=== PATIENT | female | born 1985 | race Caucasian/White ===

== ENCOUNTER 2017-05-09 17:32 | Emergency (ER) | payer OTHER ==
[~2017-05-09] VITALS: Ht 170.2 cm; Wt 90.7 kg
[~2017-05-09 17:32] MED LIST: ALDOMET250 MG PO; CEPHALEXIN 500500 M3 PO; CIPRO250 M2 PO; IBUPROFEN 800800 M1 PO; IBUPROFEN 800800 MG PO; IMITREX 25 MG T25 MG PO; MEDROLDOSEPACK PO; MICROGESTIN1 EAC1 PO; MUCINEX TA600 MG/TA2 PO; PRINIVIL10 MG PO; PROAIR HFA8.5 GM INH; PROMETHAZINE D480 ML PO; TESSALON PERLE100 MG PO; TOPAMAX 25 MG T25 M1 PO; ZPAK PO
[2017-05-09 19:41] VITALS: BP 124/66
== END 2017-05-09 19:42 | disposition home or self-care (01) ==
LOC: M.ERS 17:32
DX: S60.221A Contusion of right hand, initial encounter (principal); I10 Essential (primary) hypertension; G43.909 Migraine, unspecified, not intractable, without status migrainosus; Z91.048 Other nonmedicinal substance allergy status; W18.39XA Other fall on same level, initial encounter; Y93.89 Activity, other specified; Y92.89 Other specified places as the place of occurrence of the external cause; Y99.0 Civilian activity done for income or pay

== ENCOUNTER 2017-09-04 18:29 | Emergency (ER) | payer OTHER ==
[~2017-09-04] VITALS: Ht 170.2 cm; Wt 90.7 kg
[2017-09-04 18:58] LABS: URINE BILIRUBIN NEGATIVE (Negative); URINE BLOOD 3+ (Negative); URINE CLARITY CLEAR; URINE COLOR YELLOW; URINE GLUCOSE-RANDOM NEGATIVE (Negative); URINE KETONES NEGATIVE (Negative); URINE LEUKOCYTES-REFLEX NEGATIVE (Negative); URINE NITRITE-REFLEX NEGATIVE (Negative); URINE PROTEIN NEGATIVE (Negative); URINE SPECIFIC GRAVITY 1.025 (1.005-1.030); URINE UROBILINOGEN 0.2 E.U./dl (0.2-1.0)
[2017-09-04 19:03] LABS: COARSE GRANULAR CASTS 0-3 Few /LPF (None Seen); FINE GRANULAR CASTS 0-3 Few /LPF (None Seen); HYALINE CASTS 0-3 Few /LPF (None Seen); MUCUS >6 Heavy strn/LPF (None Seen); SQUAMOUS >10 Many /LPF (0-3)
[2017-09-04 19:04] LABS: AMORPHOUS URATES Moderate /LPF (None Seen); URINE RBC >20 Many /HPF (0-2); URINE WBC-REFLEX 6-15 Few /HPF (0-5)
[2017-09-04 19:07] LABS: ABSOLUTE BASOPHILS 0.1 thou/uL (0.0-0.2); ABSOLUTE EOSINOPHILS 0.1 thou/uL (0.0-0.7); ABSOLUTE LYMPHOCYTES 2.8 thou/uL (0.8-5.3); ABSOLUTE MONOCYTES 0.8 thou/uL (0.0-1.2); ABSOLUTE NEUTROPHILS 6.1 thou/uL (1.6-8.1); HEMATOCRIT 36.9 % (37.0-47.0); HEMOGLOBIN 12.7 gm/dL (12.0-15.0); LYMPHOCYTES 28.6 %; MCH 30.7 pg (26.0-34.0); MCHC 34.5 g/dL (28.0-37.0); MONOCYTES 7.8 %; MPV 10.7 fl. (7.2-11.1); NUCLEATED RBCS 0 /100WBC; PLATELET COUNT* 187 thou/uL (150-400); POLYS 61.6 %; RBC 4.14 mil/uL (4.20-5.00); RDW-CV 13.2 % (10.5-14.5); WBC 9.9 thou/uL (4.0-11.0)
[2017-09-04 19:14] LABS: CALCIUM 9.1 mg/dL (8.5-10.1); POTASSIUM 3.7 mmol/L (3.5-5.1)
[2017-09-04 19:19] LABS: ALBUMIN 3.5 g/dL (3.4-5.0); TOTAL BILIRUBIN 0.2 mg/dL (<0.1-1.0); TOTAL PROTEIN 7.1 g/dL (6.4-8.2)
[2017-09-04] MEDS ORDERED: ULTRAM 50MG TAB50 MG PO (19:23)
[2017-09-04] MEDS ORDERED: BACTRIM DS TAB1 EAC1 PO (19:23)
[2017-09-04 19:40] VITALS: BP 127/83
== END 2017-09-04 19:40 | disposition home or self-care (01) ==
LOC: M.ERS 18:29
PROVIDERS: Nurse Practitioner
DX: R31.9 Hematuria, unspecified (principal); G43.909 Migraine, unspecified, not intractable, without status migrainosus; I10 Essential (primary) hypertension; Z86.2 Personal history of diseases of the blood and blood-forming organs and certain disorders involving the immune mechanism; Z91.018 Allergy to other foods

== ENCOUNTER 2017-09-29 00:18 | Emergency (ER) | payer OTHER ==
[~2017-09-29] VITALS: Ht 167.6 cm; Wt 86.2 kg
[~2017-09-29 00:18] MED LIST changes: +BACTRIM DS TAB1 EAC1 PO; +ULTRAM 50MG TAB50 MG PO
[2017-09-29] MEDS ORDERED: PREDNISONE50 MG PO (00:45)
[2017-09-29] MEDS ORDERED: TRIAMCINOLONE A80 G2 TOP (00:45)
[2017-09-29 01:17] VITALS: BP 128/86
== END 2017-09-29 01:18 | disposition home or self-care (01) ==
LOC: M.ERS 00:18
DX: T78.40XA Allergy, unspecified, initial encounter (principal); I10 Essential (primary) hypertension; G43.909 Migraine, unspecified, not intractable, without status migrainosus; Z91.018 Allergy to other foods; Z86.2 Personal history of diseases of the blood and blood-forming organs and certain disorders involving the immune mechanism; X58.XXXA Exposure to other specified factors, initial encounter

== ENCOUNTER 2017-10-13 14:58 | Emergency (ER) | payer OTHER ==
[~2017-10-13] VITALS: Ht 167.6 cm; Wt 90.7 kg
[~2017-10-13 14:58] MED LIST changes: +PREDNISONE50 MG PO; +TRIAMCINOLONE A80 G2 TOP
[2017-10-13] MEDS ORDERED: NIFEDIPINE ER30 M1 PO (15:06)
[2017-10-13 15:26] LABS: ABSOLUTE BASOPHILS 0.1 thou/uL (0.0-0.2); ABSOLUTE EOSINOPHILS 0.1 thou/uL (0.0-0.7); ABSOLUTE LYMPHOCYTES 2.9 thou/uL (0.8-5.3); ABSOLUTE MONOCYTES 0.6 thou/uL (0.0-1.2); BASOPHILS 0.7 %; EOSINOPHILS 0.7 %; HEMATOCRIT 40.7 % (37.0-47.0); HEMOGLOBIN 13.9 gm/dL (12.0-15.0); LYMPHOCYTES 19.8 %; MCH 30.6 pg (26.0-34.0); MCHC 34.2 g/dL (28.0-37.0); MCV 89.4 fL (80.0-100.0); MONOCYTES 4.1 %; MPV 10.5 fl. (7.2-11.1); NUCLEATED RBCS 0 /100WBC; PLATELET COUNT* 176 thou/uL (150-400); POLYS 74.7 %; RBC 4.56 mil/uL (4.20-5.00); RDW-CV 13.3 % (10.5-14.5); WBC 14.7 thou/uL (4.0-11.0)
[2017-10-13 15:32] LABS: ANION GAP 11 mmol/L (7-16); BUN 10 mg/dL (7-18); CALCIUM 8.8 mg/dL (8.5-10.1); CHLORIDE 103 mmol/L (98-107); CO2 24 mmol/L (21-32); GLUCOSE 152 mg/dL (70-99); POTASSIUM 3.3 mmol/L (3.5-5.1); SODIUM 138 mmol/L (136-145)
[2017-10-13 15:42] LABS: ALBUMIN 3.5 g/dL (3.4-5.0); ALKALINE PHOSPHATASE 70 U/L (46-116); LIPASE 111 U/L (73-393); MAGNESIUM 1.8 mg/dL (1.8-2.4); NT-PRO BRAIN NAT PEPTIDE 32 pg/mL (<300); SGOT 10 U/L (15-37); SGPT 24 U/L (30-65); TOTAL BILIRUBIN 0.4 mg/dL (<0.1-1.0); TOTAL PROTEIN 7.2 g/dL (6.4-8.2); TROPONIN-I LEVEL <0.06 ng/mL (<0.06)
[2017-10-13] MEDS ORDERED: ZOFRAN ODT4 MG PO (18:06)
[2017-10-13 18:14] VITALS: BP 115/62
--- NOTE | 2017-10-14 10:11 | EKG ---
[place] [address] ELECTROCARDIOGRAM REPORT Name: RACIEL JACKSON Room: [facility]#: [id number] Admission: 10/13/17 Attend Phys: Discharge: 10/13/17 Date of : 83 Report #: [id number] THIS REPORT FOR: //name// [facility] ED Test Date: 2017-10-13 Test Time: 15:02:48 Pat Name: RACIEL BRAYRANDELL Department: Room: Gender: F Contract Coordinator: : 1985 Requested By: Jimmy Nieves Order Number: [id number] MD: Pavel Velazquez Measurements Intervals [place] Rate: 88 P: -14 MT: 126 QRS: 32 QRSD: 100 T: -3 QT: 371 QTc: 449 Interpretive Statements Sinus rhythm Minimal ST depression, anterolateral leads Baseline wander in lead(s) III,aVL No previous ECG available for comparison Electronically Signed On 10-14-2017 10:11:10 CDT by Pavel Velazquez [email or web address] <ELECTRONICALLY SIGNED> By: Pavel Velazquez MD, [facility] 10/14/17 1011 1502 1502 Pavel Velazquez MD, [facility] /EPI
--- NOTE | 2017-10-14 10:15 | EKG ---
[place] [address] ELECTROCARDIOGRAM REPORT Name: RACIEL JACKSON Room: [facility]#: [id number] Admission: 10/13/17 Attend Phys: Discharge: 10/13/17 Date of : 83 Report #: [id number] THIS REPORT FOR: //name// [facility] ED Test Date: 2017-10-13 Test Time: 16:54:39 Pat Name: RACIELJESÚS JACKSON Department: Room: Gender: F Nursing Agency Manager: : 1985 Requested By: Jimmy Nieves Order Number: [id number] MD: Pavel Velazquez Measurements Intervals [place] Rate: 80 P: -11 CT: 128 QRS: 17 QRSD: 101 T: -7 QT: 418 QTc: 483 Interpretive Statements Sinus rhythm Borderline T abnormalities, inferior leads Borderline prolonged QT interval Electronically Signed On 10-14-2017 10:15:30 CDT by Pavel Velazquez [email or web address] <ELECTRONICALLY SIGNED> By: Pavel Velazquez MD, [facility] 10/14/17 1015 1654 1654 Pavel Velazquez MD, FACC /EPI
== END 2017-10-13 18:15 | disposition home or self-care (01) ==
LOC: M.ERS 14:58
PROVIDERS: Emergency Medicine Emergency Medical Services
DX: R07.89 Other chest pain (principal); G43.909 Migraine, unspecified, not intractable, without status migrainosus; I10 Essential (primary) hypertension; Z86.2 Personal history of diseases of the blood and blood-forming organs and certain disorders involving the immune mechanism; Z91.018 Allergy to other foods

== ENCOUNTER 2017-10-16 14:08 | Emergency (ER) | payer OTHER ==
[~2017-10-16] VITALS: Ht 167.6 cm; Wt 90.7 kg
[~2017-10-16 14:08] MED LIST changes: +NIFEDIPINE ER30 M1 PO; +ZOFRAN ODT4 MG PO
[2017-10-16 14:33] LABS: ABSOLUTE BASOPHILS 0.1 thou/uL (0.0-0.2); ABSOLUTE EOSINOPHILS 0.1 thou/uL (0.0-0.7); ABSOLUTE LYMPHOCYTES 2.7 thou/uL (0.8-5.3); ABSOLUTE MONOCYTES 0.7 thou/uL (0.0-1.2); ABSOLUTE NEUTROPHILS 7.9 thou/uL (1.6-8.1); BASOPHILS 0.8 %; EOSINOPHILS 1.2 %; HEMATOCRIT 38.2 % (37.0-47.0); HEMOGLOBIN 12.9 gm/dL (12.0-15.0); LYMPHOCYTES 23.2 %; MCH 30.3 pg (26.0-34.0); MCHC 33.8 g/dL (28.0-37.0); MCV 89.6 fL (80.0-100.0); MONOCYTES 6.3 %; MPV 10.6 fl. (7.2-11.1); NUCLEATED RBCS 0 /100WBC; PLATELET COUNT* 165 thou/uL (150-400); POLYS 68.5 %; RBC 4.26 mil/uL (4.20-5.00); RDW-CV 13.2 % (10.5-14.5); WBC 11.5 thou/uL (4.0-11.0)
[2017-10-16 14:43] LABS: ANION GAP 5 mmol/L (7-16); BUN 11 mg/dL (7-18); CALCIUM 8.6 mg/dL (8.5-10.1); CHLORIDE 103 mmol/L (98-107); CO2 29 mmol/L (21-32); CREATININE 0.8 mg/dL (0.6-1.3); GLUCOSE 96 mg/dL (70-99); POTASSIUM 3.8 mmol/L (3.5-5.1); SODIUM 137 mmol/L (136-145)
[2017-10-16 14:50] LABS: ALBUMIN 3.2 g/dL (3.4-5.0); ALKALINE PHOSPHATASE 76 U/L (46-116); LIPASE 126 U/L (73-393); MAGNESIUM 1.8 mg/dL (1.8-2.4); SGOT 13 U/L (15-37); SGPT 23 U/L (30-65); TOTAL BILIRUBIN 0.2 mg/dL (<0.1-1.0); TOTAL PROTEIN 6.7 g/dL (6.4-8.2); TROPONIN-I LEVEL <0.06 ng/mL (<0.06)
--- NOTE | 2017-10-16 15:21 | EKG ---
[place] [address] ELECTROCARDIOGRAM REPORT Name: RACIEL JACKSON Room: [facility]#: [id number] Admission: 10/16/17 Attend Phys: Discharge: Date of : 83 Report #: [id number] THIS REPORT FOR: //name// [facility] ED Test Date: 2017-10-16 Test Time: 14:18:11 Pat Name: RACIEL JACKSON Department: Room: Gender: F Reclamation Engineer: Vanessa GRACE : 1985 Requested By: Jimmy Nieves Order Number: [id number] MD: Pavel Velazquez Measurements Intervals [place] Rate: 79 P: -2 MA: 132 QRS: 15 QRSD: 102 T: 1 QT: 403 QTc: 463 Interpretive Statements Sinus rhythm Compared to ECG 10/13/2017 16:54:39 no change Electronically Signed On 10-16-2017 15:21:48 CDT by Pavel Velazquez [email or web address] <ELECTRONICALLY SIGNED> By: Pavel Velazquez MD, [facility] 10/16/17 1521 1418 1418 Pavel Velazquez MD, FACC /EPI
[2017-10-16 17:50] VITALS: BP 134/78
--- NOTE | 2017-10-20 08:15 | CON ---
[address] [address] CONSULTATION Name: RACIEL JACKSON Room: [facility]#: [id number] Admission: 10/16/17 Attend Phys: Discharge: 10/16/17 Date of : 83 Report #: [id number] THIS REPORT FOR: //name// CC: Jimmy Morales ONLINE SERVICES MANAGER INDICATION: Palpitations, chest pressure and heaviness. HISTORY OF PRESENT ILLNESS: The patient is a 31-year-old white female who started noting symptoms of tachycardia on Friday. She had recently switched from methyldopa to nifedipine for her blood pressure. She took a single dose of nifedipine and then had symptoms of chest pressure and tachycardia. She has been off this medicine since. She continues to have intermittent episodes where she feels her heart racing and feels chest pressure. At the time of my interview in the Emergency Room, her heart rate was in the 80s and she was comfortable. The patient and her note that she has had dizziness intermittently for the last 6 months. She has not had any syncope. The patient and her report that they are considering in the near future and this has prompted some adjustments to her antihypertensive regimen. PAST MEDICAL HISTORY: 1. Hypertension. 2. Migraines. PAST SURGICAL HISTORY: None. FAMILY HISTORY: The patient's father may have sarcoidosis. SOCIAL HISTORY: The patient does not smoke. She does not drink alcohol. ALLERGIES: None. CURRENT MEDICATIONS: Imitrex p.r.n. REVIEW OF SYSTEMS: A 14-point review of systems is positive for palpitations, chest tightness, dyspnea on exertion and lightheadedness. Otherwise, unremarkable. PHYSICAL EXAMINATION: VITAL SIGNS: Stable. Blood pressure was 132/83, pulse 82 and regular. GENERAL: This is a pleasant young lady who is in no distress. Mood and affect appropriate. HEENT: Extraocular muscles intact. Mucous membranes are moist. NECK: Shows no jugular venous distention. [place] [address] CONSULTATION Name: RACIEL JACKSON Room: [facility]#: [id number] Admission: 10/16/17 Attend Phys: Discharge: 10/16/17 Date of : 83 Report #: [id number] CHEST: Reveals clear lung kelsey without wheezes or rales. CARDIOVASCULAR: Reveals a regular rhythm with normal S1 and S2. I do not appreciate gallop or murmur. ABDOMEN: Reveals normal bowel sounds. The abdomen is soft, nontender. EXTREMITIES: Shows no edema. Peripheral pulses 2+ and easily palpable. SKIN: Warm and dry. LABORATORY DATA: A 12-lead EKG shows sinus rhythm with no significant ST or T-wave abnormalities. Troponin is less than 0.06. Chest x-ray shows no acute cardiopulmonary abnormality. IMPRESSION AND RECOMMENDATIONS: 1. Chest pressure and discomfort. Etiology not clear. I would like the patient undergo an exercise echocardiogram. Further cardiac evaluation will be pending the results of the study. 2. Palpitations including some tachycardia, possibly related to her nifedipine, although she only took 1 dose. I would recommend treating her blood pressure with labetalol as this may have a calming effect on her heart rate. 3. Hypertension. The patient relatively stable at this time on no medications at all. 4. The patient is concerned about whether or not she is healthy from a cardiac standpoint for . At this point in time, I see no contraindications to . If her stress echocardiogram is unremarkable, then there are certainly no contraindications. <ELECTRONICALLY SIGNED> By: Cong Bolanos MD, FACC 10/20/17 0815 1549 2020Micanastacia Bolanos MD, FACC /nt
--- NOTE | 2017-10-21 10:55 | EXE ---
[place] [address] STRESS ECHOCARDIOGRAM Name: ASASCOOBYRoopaRACIEL Room: [facility]#: [id number] Admission: 10/16/17 Attend Phys: Discharge: 10/16/17 Date of : 83 Date of Service: 10/21/17 1055 Report #: [id number] THIS REPORT FOR: //name// APPROVED REPORT Study performed: 10/16/2017 16:53:42 Exam: Stress Echocardiogram Indication: Chest pain , Dyspnea Patient Location: ER Stress Nurse: Elva Jacob RN Supervising Physician: Cong Bolanos MD Ht: 5 ft 6 in HR: 75 bpm BP: 142/86 mmHg Medical History Medications: Nifedipine Cardiac Risk Factors: FHX of CAD, HTN Procedure The patient underwent an Exercise Stress Test using the Rome Protocol. Blood pressure, heart rate, and EKG were monitored. An Echocardiogram was performed by sales technician in four stages in quad fashion. At peak stress, four selected images were obtained and placed side by side with resting images for comparison. Stress Test Details Stress Test: Exercise stress testing was performed using a Rome protocol. HR Resting HR: 75 bpm Max Heart Rate (APMHR): 188 bpm Max HR Achieved: 185 bpm Target HR (85% APMHR): 159 bpm % of APMHR: 98 Recovery HR: 96 bpm HR response to stress: Normal HR response to stress BP Resting BP: 142/86 mmHg Max BP: 128/74 mmHg Recovery BP: 149/83 mmHg ECG Resting ECG: Sinus Rhythm Stress ECG: Sinus Rhythm, nonspecific ST-T abnormalities ST Change: [place] [address] STRESS ECHOCARDIOGRAM Name: RACIEL JACKSON Room: [facility]#: [id number] Admission: 10/16/17 Attend Phys: Discharge: 10/16/17 Date of : 83 Date of Service: 10/21/17 1055 Report #: [id number] Maximum ST Deviation: 0.5 mm Arrhythmia: None Recovery ECG: Sinus Rhythm, nonspecific ST-T abnormalities Recovery ST Change: Upsloping ST depression Recovery ST Deviation: 0.5 mm Recovery Arrhythmia: None Clinical Reason for Termination: Dyspnea, Maximal effort Stress Symptoms: Chest heaviness Exercise duration: 10 min sec Highest Stage Achieved: Stage 4: 4.2 mph at 16% grade. Exercise capacity: 11.78 METs Overall Exercise Capacity for Age: Good Pre-Stress Echo The resting Echocardiogram showed normal left ventricular contractility with an estimated Ejection Fraction of about 60-65%. Post-Stress Echo The stress Echocardiogram showed normal left ventricular contractility with an estimated Ejection Fraction of about >70%. Conclusion Clinical Response: Equivocal Exercise Capacity: Average Stress ECG Response: Indeterminant Stress Echo Images: Non-ischemic low risk stress echo for future cardiac events Other Information Study Quality: Fair <Conclusion> low risk stress echo for future cardiac events <ELECTRONICALLY SIGNED> By: Cong Bolanos MD, FACC 10/21/17 1055 1055 1055 Cong Bolanos MD, FACC /INF
== END 2017-10-16 17:51 | disposition home or self-care (01) ==
LOC: M.ERS 14:08
PROVIDERS: Emergency Medicine Emergency Medical Services
DX: R07.9 Chest pain, unspecified (principal); I10 Essential (primary) hypertension; G43.909 Migraine, unspecified, not intractable, without status migrainosus; Z86.2 Personal history of diseases of the blood and blood-forming organs and certain disorders involving the immune mechanism; Z91.018 Allergy to other foods

== ENCOUNTER 2017-12-21 01:47 | Emergency (ER) | payer OTHER ==
[~2017-12-21] VITALS: Ht 170.2 cm; Wt 90.7 kg
[2017-12-21] MEDS ORDERED: TRANDATE 200 M200 M1 PO (01:58)
[2017-12-21] MEDS ORDERED: ZOFRAN ODT4 MG PO (02:40)
[2017-12-21] MEDS ORDERED: BUTALB-APAP-CA1 EACH PO (02:40)
[2017-12-21 03:45] VITALS: BP 124/80
== END 2017-12-21 03:45 | disposition home or self-care (01) ==
LOC: M.ERS 01:47
DX: G43.909 Migraine, unspecified, not intractable, without status migrainosus (principal); I10 Essential (primary) hypertension; Z88.8 Allergy status to other drugs, medicaments and biological substances

== ENCOUNTER 2018-03-18 13:18 | Emergency (ER) | payer OTHER ==
[~2018-03-18] VITALS: Ht 170.2 cm; Wt 103.4 kg
[~2018-03-18 13:18] MED LIST changes: +BUTALB-APAP-CA1 EACH PO; +TRANDATE 200 M200 M1 PO
[2018-03-18] MEDS ORDERED: PRENATAL PO (13:37)
[2018-03-18 14:00] LABS: HEMATOCRIT 36.3 % (37.0-47.0); HEMOGLOBIN 12.3 gm/dL (12.0-15.0); MCHC 33.8 g/dL (28.0-37.0); MCV 88.7 fL (80.0-100.0); MPV 10.4 fl. (7.2-11.1); RBC 4.09 mil/uL (4.20-5.00); RDW-CV 13.4 % (10.5-14.5); WBC 10.5 thou/uL (4.0-11.0)
[2018-03-18 14:13] LABS: CALCIUM 8.8 mg/dL (8.5-10.1); CREATININE 0.7 mg/dL (0.6-1.3); POTASSIUM 3.6 mmol/L (3.5-5.1)
[2018-03-18 14:17] LABS: ALBUMIN 3.4 g/dL (3.4-5.0); TOTAL BILIRUBIN 0.2 mg/dL (<0.1-1.0); TOTAL PROTEIN 6.9 g/dL (6.4-8.2)
[2018-03-18 15:39] VITALS: BP 140/79
== END 2018-03-18 15:41 | disposition home or self-care (01) ==
LOC: M.ERS 13:18
PROVIDERS: Nurse Practitioner
DX: O9A.211 Injury, poisoning and certain other consequences of external causes complicating pregnancy, first trimester (principal); S93.492A Sprain of other ligament of left ankle, initial encounter; G43.909 Migraine, unspecified, not intractable, without status migrainosus; I10 Essential (primary) hypertension; Z86.2 Personal history of diseases of the blood and blood-forming organs and certain disorders involving the immune mechanism; Z91.018 Allergy to other foods; Z88.8 Allergy status to other drugs, medicaments and biological substances; Z91.048 Other nonmedicinal substance allergy status; Z3A.11 11 weeks gestation of pregnancy; W10.9XXA Fall (on) (from) unspecified stairs and steps, initial encounter; Y92.89 Other specified places as the place of occurrence of the external cause; Y93.89 Activity, other specified; Y99.8 Other external cause status

== ENCOUNTER 2018-03-27 13:06 | Emergency (ER) | payer OTHER ==
[~2018-03-27] VITALS: Ht 167.6 cm; Wt 108.4 kg
[~2018-03-27 13:06] MED LIST changes: +PRENATAL PO
[2018-03-27 13:31] VITALS: BP 143/78
== END 2018-03-27 13:31 | disposition home or self-care (01) ==
LOC: M.ERS 13:06
DX: O26.891 Other specified pregnancy related conditions, first trimester (principal); R20.2 Paresthesia of skin; O99.111 Other diseases of the blood and blood-forming organs and certain disorders involving the immune mechanism complicating pregnancy, first trimester; I10 Essential (primary) hypertension; G43.909 Migraine, unspecified, not intractable, without status migrainosus; Z3A.13 13 weeks gestation of pregnancy; Z91.018 Allergy to other foods; Z88.8 Allergy status to other drugs, medicaments and biological substances

== ENCOUNTER 2018-04-27 21:08 | Emergency (ER) | payer OTHER ==
[~2018-04-27] VITALS: Ht 167.6 cm; Wt 106.6 kg
[2018-04-27] MEDS ORDERED: ASPIR 8181 MG (21:20)
[2018-04-27] MEDS ORDERED: PROAIR HFA8.5 GM INH (21:31)
[2018-04-27] MEDS ORDERED: KEFLEX500 M1 PO (21:31)
[2018-04-27 22:00] VITALS: BP 134/79
== END 2018-04-27 22:00 | disposition home or self-care (01) ==
LOC: M.ERS 21:08
DX: J20.9 Acute bronchitis, unspecified (principal); I10 Essential (primary) hypertension; G43.909 Migraine, unspecified, not intractable, without status migrainosus; Z88.8 Allergy status to other drugs, medicaments and biological substances

== ENCOUNTER 2018-05-15 07:18 | Emergency (ER) | payer OTHER ==
[~2018-05-15] VITALS: Ht 170.2 cm; Wt 106.6 kg
[~2018-05-15 07:18] MED LIST changes: +ASPIR 8181 MG; +KEFLEX500 M1 PO
[2018-05-15 08:17] LABS: INFLUENZA A ANTIGEN None Detected (None Detect); INFLUENZA B ANTIGEN None Detected (None Detect)
[2018-05-15] MEDS ORDERED: ZPAK PO (08:21)
[2018-05-15 08:54] VITALS: BP 132/75
== END 2018-05-15 08:55 | disposition home or self-care (01) ==
LOC: M.ERS 07:18
PROVIDERS: Emergency Medicine
DX: J06.9 Acute upper respiratory infection, unspecified (principal); I10 Essential (primary) hypertension; G43.909 Migraine, unspecified, not intractable, without status migrainosus; Z91.018 Allergy to other foods; Z88.8 Allergy status to other drugs, medicaments and biological substances; Z91.048 Other nonmedicinal substance allergy status; Z86.2 Personal history of diseases of the blood and blood-forming organs and certain disorders involving the immune mechanism

== ENCOUNTER 2018-11-20 08:26 | Emergency (ER) | payer OTHER ==
[~2018-11-20] VITALS: Ht 170.2 cm; Wt 103.9 kg
[~2018-11-20 08:26] MED LIST changes: +LABETALOL HCL100 MG PO; +LAMICTAL100 MG PO; +NORCO 5-325 TA1 EAC1 PO; +PENICILLIN VK250 MG PO
[2018-11-20 10:01] VITALS: BP 133/86
== END 2018-11-20 10:01 | disposition home or self-care (01) ==
LOC: M.ERS 08:26
DX: G43.909 Migraine, unspecified, not intractable, without status migrainosus (principal); R11.2 Nausea with vomiting, unspecified; I10 Essential (primary) hypertension; L23.1 Allergic contact dermatitis due to adhesives; Z91.018 Allergy to other foods; Z88.8 Allergy status to other drugs, medicaments and biological substances; Z86.2 Personal history of diseases of the blood and blood-forming organs and certain disorders involving the immune mechanism

== ENCOUNTER 2019-07-11 13:31 | Emergency (ER) | payer OTHER ==
[~2019-07-11] VITALS: Ht 170.2 cm; Wt 99.8 kg
[2019-07-11] MEDS ORDERED: TOPAMAX100 MG PO (13:45)
[2019-07-11] MEDS ORDERED: HYDROCORTISONE3011 TOP (14:11)
[2019-07-11] MEDS ORDERED: MEDROLDOSEPACK PO (14:11)
[2019-07-11] MEDS ORDERED: HYDROXYZINE HCL25 M2 PO (14:11)
[2019-07-11 14:34] VITALS: BP 142/89
== END 2019-07-11 14:36 | disposition home or self-care (01) ==
LOC: M.ERS 13:31
DX: L24.0 Irritant contact dermatitis due to detergents (principal); I10 Essential (primary) hypertension; G43.909 Migraine, unspecified, not intractable, without status migrainosus; Z86.2 Personal history of diseases of the blood and blood-forming organs and certain disorders involving the immune mechanism; Z88.8 Allergy status to other drugs, medicaments and biological substances; Z91.018 Allergy to other foods

== ENCOUNTER 2019-10-11 19:21 | Emergency (ER) | payer OTHER ==
[~2019-10-11] VITALS: Ht 167.6 cm; Wt 104.3 kg
[~2019-10-11 19:21] MED LIST changes: +HYDROCORTISONE3011 TOP; +HYDROXYZINE HCL25 M2 PO; +TOPAMAX100 MG PO
[2019-10-11] MEDS ORDERED: HYDROXYZINE HCL25 M2 PO (20:58)
[2019-10-11 21:19] VITALS: BP 132/89
== END 2019-10-11 21:20 | disposition home or self-care (01) ==
LOC: M.ERS 19:21
DX: T78.40XA Allergy, unspecified, initial encounter (principal); I10 Essential (primary) hypertension; G43.909 Migraine, unspecified, not intractable, without status migrainosus; Z86.2 Personal history of diseases of the blood and blood-forming organs and certain disorders involving the immune mechanism; Z91.048 Other nonmedicinal substance allergy status; Z91.018 Allergy to other foods; X58.XXXA Exposure to other specified factors, initial encounter